=== PATIENT | female | born 1965 | race Hispanic/Latino ===

== ENCOUNTER 2017-05-30 13:12 | Outpatient (CLI) | payer SELFPAY, OTHER | END 2017-05-30 13:13 | disposition home or self-care (01) | LOC: BICMAMMO 13:12 | PROVIDERS: ATTEND Nurse Practitioner Family | DX: Z12.31 Encounter for screening mammogram for malignant neoplasm of breast (principal) | CPT/HCPCS: 77067; G0202 ==

== ENCOUNTER 2018-06-02 22:26 | Emergency (ER) | payer OTHER, SELFPAY ==
[2018-06-02] MEDS ORDERED: Acetaminophen 500 MG TAB ONE (22:42)
[2018-06-02] MEDS ORDERED: Ondansetron PF 4 MG/2 ML Vial ONE (22:42)
[2018-06-02 23:04] LABS: #Lymphocytes 1.2 thou/uL (1.20-3.40); #Monocytes 0.6 thou/uL (0.11-0.59); #Neutrophils 11.7 thou/uL (1.40-6.50); %Basophils 0.1 % (0.0-1.0); %Eosinophils 0.1 % (0.0-10.0); %Lymphocytes 8.5 % (21.0-51.0); %Monocytes 4.4 % (0.0-10.0); %Neutrophils 86.8 % (42.0-75.0); Hemoglobin 13.9 g/dL (12.0-16.0); Mean Corpuscular HGB CONC 34.7 g/dL (32.0-36.0); Mean Corpuscular Hemoglobin 31.6 pg (27.0-31.0); Mean Platelet Volume 7.2 fL (7.4-10.4); Platelet Count 275 thou/uL (130-400); RBC Distribution Width 11.3 % (11.5-14.5); Red Blood Cell (RBC) Count 4.39 mill/uL (4.20-5.40); White Blood Cell (WBC) Count 13.4 thou/uL (4.8-10.8)
[2018-06-02] MEDS ORDERED: Ketorolac Tromethamine 30 MG/ML VIAL ONE (23:13)
[2018-06-02 23:28] LABS: ALT (SGPT) 31 U/L (8-55); AST (SGOT) 28 U/L (5-34); Albumin 4.4 g/dL (3.5-5.0); Alkaline Phosphatase 87 U/L (40-150); Anion Gap 13 mmol/L (10-20); BUN (Urea Nitrogen) 14 mg/dL (9.8-20.1); Bilirubin, Total 0.6 mg/dL (0.2-1.2); Calc. Creatinine Clearance 0 mL/min (70-130); Calcium 9.6 mg/dL (7.8-10.44); Carbon Dioxide 23 mmol/L (22-29); Chloride 102 mmol/L (98-107); Estimated GFR-MDRD 75; Globulin 3.7 g/dL (2.4-3.5); Glucose 133 mg/dL (70-105); Potassium 3.9 mmol/L (3.5-5.1); Protein, Total 8.1 g/dL (6.0-8.3); Sodium 134 mmol/L (136-145)
[2018-06-02] MEDS ORDERED: cefTRIAXone\\ROCEPHIN 2 GM VIAL ONE (23:54)
--- NOTE | 2018-06-03 00:01 | RAD ---
PORTABLE CHEST: 06/02/18 HISTORY: Fever. Lungs appear clear of infiltrate. Heart and mediastinum unremarkable. IMPRESSION: No evidence of acute process. POS: [facility]
[2018-06-03 00:26] LABS: Bilirubin Negative (Negative); Blood, Urine Small (Negative); Clarity CLEAR (Clear); Glucose, Urine (Dipstick) Negative (Negative); Leukocyte Negative (Negative); Nitrite Negative (Negative); Protein, Urine (Dipstick) Negative (Neg-Trace)
[2018-06-03 00:29] LABS: Bacteria/HPF None Seen HPF (None Seen); Hyaline Casts/LPF 0-3 HYALINE CAST LPF (0-3 Hyaline); Pathc Cast-AUWi Flag 0.14 (0-2.49); Squamous Epithelial 0-3 HPF (0-3); WBC/HPF 0-3 HPF (0-3)
[2018-06-03] MEDS ORDERED: cefTRIAXone\\ROCEPHIN 2 GM VIAL ONE (00:51)
[2018-06-03 01:16] LABS: CSF Source CSF; Clarity Clear (Clear); Tube # 4
[2018-06-03 01:22] LABS: RBC Count - Manual 5 /cumm (None Seen); WBC/NonHematics Count - Manual 1 /cumm (0-5)
[2018-06-03 01:31] LABS: CSF, Glucose 69 mg/dl (40-70); CSF, Protein 28 mg/dL (15-40)
[2018-06-03 01:32] LABS: Color Of CSF Supernatant COLORLESS (Colorless); Tube # 1; Unspun CSF Color COLORLESS (Colorless)
--- NOTE | 2018-06-03 07:50 | RAD ---
PROCEDURE: Lumbar puncture under fluoroscopic guidance. INDICATION: Fever with headache. Assess for meningitis. FINDINGS: Spinal canal entered with a 22 gauge needle at L2. Clear CSF was recovered and collected in three marisa t tubes. PROCEDURE NOTE: Patient signed permit. Patient placed prone on fluoro table. Lower back prepped and draped in sterile manner. Local anesthesia administered with lidocaine under fluoroscopic guidance. A 22 gauge spinal needle was used to enter the spinal canal using a paramidline approach on the left at the L2 vertebra . Clear CSF was recovered and collected in three test tubes. There were no problems or complications. POS: [facility]
== END 2018-06-03 01:43 | disposition home or self-care (01) ==
LOC: ERS 22:26
DX: J11.1 Influenza due to unidentified influenza virus with other respiratory manifestations (principal)
CPT/HCPCS: 36415; 62270; 71045; 80053; 81003; 81015; 82945; 83605; 84157; 85025; 87070; 87205; 87804; 89051; 96361; 96365; 96375; J0696; J1885; J2405